=== PATIENT | male | born 1980 | race Caucasian/White ===

== ENCOUNTER 2024-07-14 05:43 | Inpatient (IN) | payer BC, SELFPAY ==
[2024-07-13 23:53] VITALS: BP 139/95
[2024-07-14] VITALS (20 sets, daily range): BP systolic 119–160; BP diastolic 65–95; BMI 22.9
[2024-07-14] MEDS: ZOFRAN 4 MG IV ×3 (00:22→10:09)
[2024-07-14] MEDS: OMNIPAQUE 50 ML PO (00:23)
[2024-07-14 00:26] LABS: Urine Albumin Negative (Neg - Trace); Urine Bilirubin Negative (Negative); Urine Character Clear (Clear); Urine Color Yellow; Urine Glucose Negative (Negative); Urine Ketone 3+ (Negative); Urine Leukocyte Negative (Negative); Urine Nitrite Negative (Negative); Urine Occult Blood 2+ (Negative); Urine Urobilinogen Negative (Neg - 1+)
[2024-07-14 00:33] LABS: % Basophils 0.4 % (0-2); % Eosinophils 0.8 % (0-6); % Immature Granulocytes 1.2 % (0-0.5); % Lymphocytes 7.7 % (20.5-51.1); % Monocytes 7.7 % (1.7-9.3); % Neutrophils 82.2 % (42.2-75.2); Absolute Eosinophils 0.1 10^3/uL (0-0.7); Absolute Immature Granulocytes 0.1 10^3/uL (0-0.05); Absolute Lymphocytes 0.8 10^3/uL (1.2-3.4); Absolute Monocytes 0.8 10^3/uL (0.1-0.6); Hematocrit 45.3 % (39.0-52.0); Hemoglobin 15.7 g/dL (13.0-18.0); Mean Corp Hgb Conc. 34.7 g/dL (33.0-37.0); Mean Corpuscular Hgb 29.5 pg (27.0-31.0); Mean Platelet Volume 9.9 fL (7.4-10.4); Nucleated Red Blood Cells % 0 % (-); Platelet Count 197 10^3/uL (130-400); Red Blood Cell Count 5.33 10^6/uL (4.70-6.10); Red Cell Dist. Width 12.7 % (11.5-14.5); White Blood Cell Count 10.9 10^3/uL (4.8-10.8)
[2024-07-14 00:41] LABS: ALT (SGPT) 21 U/L (0-50); AST (SGOT) 24 U/L (17-59); Albumin 4.3 g/dl (3.5-5.0); Alkaline Phosphatase 71 U/L (38-126); Blood Urea Nitrogen 20 mg/dl (9-20); Calcium 9.4 mg/dl (8.4-10.2); Carbon Dioxide 24 mmol/L (22-30); Chloride 107 mmol/L (98-107); Estimated Creatinine Clearance > 125 ml/min; Glucose 116 mg/dl (70-99); Potassium 4.2 mmol/L (3.5-5.1); Sodium 138 mmol/L (135-145); Total Protein 6.9 g/dl (6.3-8.2); eGFR > 60.00
[2024-07-14 00:42] LABS: Urine Bacteria Few (Negative); Urine Mucus Few; Urine White Cell 0-2 /HPF (0-5)
[2024-07-14] MEDS: NSS 1000 IV (02:28)
[2024-07-14] MEDS: DILAUDID 1 MG IV ×3 (02:40→13:11)
--- NOTE | 2024-07-14 03:12 | ED.GENMED ---
History of Present Illness
General
Chief Complaint: Abdominal Pain
Source: patient
Exam Limitations: none
Time Seen by Provider: 07/14/24 00:19
Nursing documentation reviewed up to this point in time: agreed with
History of Present Illness
History of Present Illness:
Pleasant 44-year-old male presents with right lower quadrant abdominal pain. He states around 5 PM the pain began periumbilically. He moved to his right lower quadrant. Patient states that he went to sleep and woke up at 11 PM with severe right
lower quadrant abdominal pain. He drove himself to the hospital. He states that the car ride over was very painful. He reports having anorexia having not eaten anything since 2:45 PM. He was nauseated
Phy Exam
General Physical Exam
General Presentation: mild distress (Multiple doses of pain medicine)
General age: appears stated age
General Skin: warm and dry
General Habitus: normal
General Mental: alert
General Hydration: appears well hydrated
ENT Exam
ENT Exam: EOMI, pharynx normal, neck supple and normocephalic
Eye Exam
Eye Exam: PERRL, cornea clear and conjunctiva normal
Cardiovascular Exam
Cardiovascular Exam: regular rate/rhythm, no edema, no murmur and normal peripheral pulses
Pulmonary Exam
Pulmonary Exam: lungs clear, no respiratory distress, no rales, no crackles, no rhonchi, no stridor, no wheezing and no cough
Gastrointestinal Exam
Gastrointestinal Exam: normal bowel sounds, guarding and rebound
Palpation: right lower quadrant: Severe tenderness
Neurological Exam
Neurological Exam: alert, oriented x3, no motor deficits and speech normal
Musculoskeletal Exam
Musculoskeletal Exam: full ROM and no edema
Skin Exam
Skin Exam: normal color, warm/dry, no rash and no petechia
Psychiatric Exam
Psychiatric Exam: normal mood/affect
Course
Orders/Labs/Results
Orders:
Orders
07/13/24 23:54
Complete Blood Count/With Diff Urgent
Comprehensive Metabolic Panel Urgent
Urinalysis Reflex To Culture Urgent
Date Specimen was Collected: 07/13/24
Time Specimen was Collected: 23:54
07/14/24 00:10
Urine Microscopic Reflex Cult Urgent
07/14/24 00:15
0.9% Sodium Chloride 1000 ml [Nss] 1,000 ml IV BOLUS
Iohexol [Omnipaque] See Protocol PO NOW STA
07/14/24 00:16
CT Abd/pel W Iv And Oral Contr Urgent
Comment:
Reason For Exam: RLQ abd pain
Ondansetron Injectable [Zofran] 4 mg .ROUTE .STK-MED ONE
07/14/24 00:17
Iohexol [Omnipaque] 50 ml .ROUTE .STK-MED ONE
Ondansetron Injectable [Zofran] 4 mg IV NOW STA
07/14/24 02:38
HYDROmorphone [Dilaudid] 1 mg .ROUTE .STK-MED ONE
Ondansetron Injectable [Zofran] 4 mg .ROUTE .STK-MED ONE
07/14/24 02:39
HYDROmorphone [Dilaudid] 1 mg IV NOW STA
Abnormal Lab Results
07/14/24
00:10
WBC 10.9 H 10^3/uL
(4.8-10.8)
Abs Immat Gran (auto) 0.1 H 10^3/uL
(0-0.05)
Absolute Neuts (auto) 9.0 H 10^3/uL
(1.4-6.5)
Absolute Lymphs (auto) 0.8 L 10^3/uL
(1.2-3.4)
Absolute Monos (auto) 0.8 H 10^3/uL
(0.1-0.6)
Immature Gran % 1.2 H %
(0-0.5)
Neutrophils % 82.2 H %
(42.2-75.2)
Lymphocytes % 7.7 L %
(20.5-51.1)
Glucose 116 H mg/dl
(70-99)
Urine Ketones 3+ A
(Negative)
Ur Occult Blood Reflex 2+ A
(Negative)
Urine RBC 7-10 A /HPF
(0-2)
Urine Bacteria (Reflex) Few A
(Negative)
07/14/24 00:10
07/14/24 00:10
Vital Signs
Initial and Last Documented VS:
Initial Vital Signs
Temp Pulse Resp BP Pulse Ox
98.4 F 67 14 139/95 95
07/13/24 23:53 07/13/24 23:53 07/13/24 23:53 07/13/24 23:53 07/13/24 23:53
Last Documented Vital Signs
Temp Pulse Resp BP Pulse Ox
98.4 F 57 16 145/88 99
07/13/24 23:53 07/14/24 02:32 07/14/24 02:32 07/14/24 02:32 07/14/24 02:34
*Radiology
Radiology exam reviewed: radiology read reviewed
*Pulse Oximetry
Patient hypoxic: no
Comment: Pulse ox is 99% on room air
*Critical Care Note
Total Time (30-74mins, 75-104mins- exclusive of procedures): Not Applicable
Update Note
Update Note:
Vision radiology: Acute simple appendicitis
ED Attending Note
-
Portions of this chart may have been created with voice recognition software.� Occasional wrong word or��sound alike� substitutions may have occurred due to the inherent limitations of voice recognition software.
Discharge Plan
Departure
Patient Disposition: Admit
Date of Disposition: 07/14/24
Time of Disposition: 03:17
Admit to: Med/Surg
Presentation/result/management discussed w/ accepting MD/DO: Dr. Dhaliwal
Condition: Good
Discharge Problem:
Acute appendicitis
Prescriptions:
No Action
No Current Medications
0
Referrals:
Jessi Ortega MD [Family Provider, Family Practice]
Interventions
Interventions:
*Risk Screen - Suicide Last Done: 07/13/24 23:53
*General Assessment Last Done: 07/14/24 02:32
*Neglect/Abuse Screening Last Done: 07/14/24 02:32
*ED- Fall Risk Assessment Last Done: 07/14/24 02:32
*ED COVID-19 Vaccine History Last Done: 07/14/24 02:32
ZW-Swfvkp-Qiocznpila Assessment Last Done: 07/14/24 02:34
Discharge Date and Time
Print Language: INDIAN
--- NOTE | 2024-07-14 04:24 | HPS.HSE ---
Addendum entered and electronically signed by Antonio Lincoln MD 07/14/24 16:22:
I saw and examined the patient.
The Clinical Assistant Professor's note was reviewed and I agree with the note.
Comment: 44M <24h RLQ pain and tenderness, interfering with sleep. Nausea endorsed, vomiting denied. ttp to rlq on exam. Mild luekocytosis, afebrile. CT with retrocecal appendix that appears inflamed. OCTOR for lap appy.
Original Note:
Family Physician
-
Family Physician: Jessi Ortega MD
Chief Complaint
-
'Abdomen pain'
History of Present Illness
44 y/o patient with no PMH presents to ER as he started having Right lower quadrant pain around 5 PM associated with some chills, unsure if had fever, nausea, loss of appetite, 1 loose stool, unrelieved with peptobismol. Reports dull, crampy pain
started around letty umbilical area which radiated towards right lower quadrant. Patient was trying to sleep and couldn't stay asleep due to worsening pain towards the lower abdomen and drove to Hospital which was very pain ful at that time. At
present pain and nausea is relieved with IV Dilauded and IV Zofran.
Medical History
Past Medical History
Past Medical History: Reports None
Past Surgical History: Reports Gynocological (reversed vasectomy )
Social History
Tobacco: Non-smoker
Alcohol: None
Drug: None
Personal:
Living: With Family
Family History
Family History: Not pertinent
Allergies / Home Medications
Allergies reflects when Allergies were last updated in [facility].
Home Medications with original date entered in [facility]
Allergy/Medication List:
Allergies
Allergy/AdvReac Type Severity Reaction Status Date / Time
No Known Allergies Allergy Unverified 07/13/24 23:57
Home Medications
No Meds [No Current Medications] 07/13/24
Review of Systems
-
History Source: Patient
A 12 point ROS was completed and negative except as noted: Yes
Constitutional: Reports No Symptoms
EENT: Reports No Symptoms
Respiratory: Reports No Symptoms
Cardiac: Reports No Symptoms
Abdomen/GI: Reports Abdominal Pain and Nausea
: Reports No Symptoms
Musculoskeletal: Reports No Symptoms
Skin: Reports No Symptoms
Neurological: Reports No Symptoms
Endocrine: Reports No Symptoms
Hematologic/Lymphatic: Reports No Symptoms
Psych: Reports No Symptoms
Physical Exam
Vital Signs
Vital Signs
Temp Pulse Resp BP Pulse Ox
98.4 F 57 16 145/88 99
07/13/24 23:53 07/14/24 02:32 07/14/24 02:32 07/14/24 02:32 07/14/24 02:34
Physical Exam
General: Well Developed, Well Nourished and No Apparent Distress
HEENT: NormoCephalic, Moist mucous membranes and Atraumatic
Respiratory: Clear and Non Labored Respirations
Cardiac: S1/S2 and Bradycardia (athlete, goes to gym regularly ); No Murmur or Rub
Breast: Deferred by me
GI: Soft, Non Distended, Normal Bowel Sounds, Tender (RLQ) and Organomegaly
Rectal: Deferred by Provider
Genito-urinary: No costovertebral tender
Musculoskeletal: No Clubbing, No Cyanosis and No Edema
Skin: Warm and Dry
Neuro: Awake, AO x 3 and Nonfocal/grossly intact
Hematologic/Lymphatic: No Lymphadenopathy
Psych: Calm and Intact Judgment/Insight
Laboratory Results
-
07/14/24 00:10
07/14/24 00:10
Laboratory Results
Total Bilirubin 1.0 mg/dl (0.2-1.3) 07/14/24 00:10
AST 24 U/L (17-59) 07/14/24 00:10
ALT 21 U/L (0-50) 07/14/24 00:10
Alkaline Phosphatase 71 U/L (38-126) 07/14/24 00:10
Data Reviewed
-
CT Scan: Report Reviewed by me
Lab Data: Labs Reviewed by me
Impression/Plan
-
44 y/o patient with abdomen pain
# Abdomen pain likely due to Acute Appendicitis
-WBC 10.7
-CT abd/pelvis Acute appendicitis without perforation
-Continue IVF
-continue Zosyn
-Dilaudid prn
-IV Zofran prn
-NPO
-Admit to Dr. Dhaliwal. [facility] floor
SCD's
Full Code
[2024-07-14] MEDS: ZOSYN 100 IV (04:43)
[2024-07-14 06:16] LABS: Hematocrit 42.4 % (39.0-52.0); Hemoglobin 14.6 g/dL (13.0-18.0); Mean Corp Hgb Conc. 34.4 g/dL (33.0-37.0); Mean Corpuscular Hgb 29.3 pg (27.0-31.0); Mean Corpuscular Volume 85.1 fL (80.0-94.0); Mean Platelet Volume 9.4 fL (7.4-10.4); Platelet Count 168 10^3/uL (130-400); Red Blood Cell Count 4.98 10^6/uL (4.70-6.10); Red Cell Dist. Width 12.7 % (11.5-14.5); White Blood Cell Count 9.3 10^3/uL (4.8-10.8)
[2024-07-14] MEDS: DILAUDID 0.5 MG IV (08:57)
--- NOTE | 2024-07-14 09:34 | CM ---
Initial assessment completed at bedside in the ED
Pharmacy verified: [facility] @ [id number]
Patient lives w/ and 2 children ages 9 & 3; [place]; 2 steps to enter, 17 steps between floors; railings on stairs; powder room main floor; 2nd floor bath has stall shower w/ seat
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
NO SNF or Home Health utilization history
will transport home
Plan: Discharge to home when medically stable; do not anticipate any DC needs/services
[2024-07-14] MEDS: ZOSYN 50 IV (10:09)
--- NOTE | 2024-07-14 16:23 | OR.RPT ---
Addendum entered and electronically signed by Antonio Lincoln MD 07/14/24 16:36:
The assistance of Gregoria LAGUERRE was required due to the complexity of the procedure. During the procedure she assisted with retraction, visualization, and closure of the wound.
Original Note:
Operative Report
Operative Report
Primary Surgeon: Latonia
Assisting: Gregoria LAGUERRE
Pre-op Diagnosis: Acute appendicitis
Post-op Diagnosis: Same
Procedure Performed: Laparoscopic appendectomy
Anesthesia Type: GETA
Specimen / Cultures: Appendix
Estimated Blood Loss:2cc
Complications: None immediate
Operative Findings: Inflamed appendix with dilated base, mild inflammation, no purulence, no perforation, turbid fluid suctioned from pelvis
Date of Surgery: 07/14/24
Indications: This 44M developed right lower quadrant abdominal pain and on workup was found to have acute appendicitis. Laparoscopic appendectomy was elected.
Description of procedure: The patient was placed on the operating table in the supine position. General anesthesia was induced. A time-out was completed verifying correct patient, procedure, site, positioning, and special equipment prior to
beginning this procedure. An orogastric tube was placed. The abdomen was prepped and draped in the usual sterile fashion. A stab incision was made in left upper quadrant and the Veress needle was inserted. Proper position was confirmed by aspiration
and saline meniscus test. The abdomen was insufflated with carbon dioxide to a pressure of 12 mmHg. The patient tolerated insufflation well.
A 5mm optical trocar was then inserted at the left lower quadrant. The laparoscope was inserted and the abdomen inspected. A minor very superficial laceration from the veress was noted on the left lobe of the liver, it was hemostatic. No other
injuries from initial trocar placement or Veress needle insertion were noted. Additional trocars were then inserted in the following locations: a 12-mm trocar at the umbilicus and a 5-mm trocar midline in the suprapubic space. The abdomen was
inspected and no abnormalities were found. The table was placed in the Trendelenburg position with the right side up. The tip of the appendix was swept inferior from its retrocecal position. It was gently grasped with an atraumatic grasper and
retracted toward the patient�s feet and abdominal wall. This maneuver exposed the appendiceal blood supply which was controlled with the Ligasure device. Following this, a laparoscopic linear cutting stapler with a 45mm merritt load was deployed and
used to transect the appendix at its base. The base was mildly dilated. The appendix was placed in an endoscopic retrieval bag, removed through the umbilical port, and passed off the table as a specimen.
We then turned our attention to the staple line, which was noted to be hemostatic. Scant turbid free fluid was suctioned from the pelvis. The umbilical trocar site was closed at the fascial level laparoscopically with 2-0 PDS under direct vision.
Secondary trocars were removed under direct vision and noted to be hemostatic. The laparoscope was withdrawn and the abdomen was allowed to collapse. The skin was closed with subcuticular sutures of 4-0 monocryl and topical skin adhesive. The
orogastric tube was removed.
The patient tolerated the procedure well and was taken to the postanesthesia care unit in stable condition.
--- NOTE | 2024-07-14 16:51 | W.DS.TRANS ---
DC Summary - Regional Controller
-
Discharge Instructions:
Discharge Diagnosis/Procedures Acute appendicitis status post appendectomy
Diet Regular,As tolerated
Activity No strenuous activity
Additional Activity Do not lift over 15lbs for the next 2-3 weeks
Driving Restrictions No driving for 24 hours
Bathing Restrictions OK to Shower
Wound Care Allow the glue to flake off your incisions over
the next 2 weeks, avoid scrubbing or picking it
off. Do not submerge in tubs or pools.
Instructions: Appendectomy - Discharge instructions
Stand-Alone Forms:
Changes to Home Medications: No
Discharge Medications:
DC Medications w/original date entered in [employer]
tramadol 50 mg tablet 50 - 100 mg (1 - 2 x 50 mg) PO Q6H PRN Pain #14 tabs 07/14/24
Home Medication Changes
Pending Results: No
[2024-07-14] MEDS: ROXICODONE 5 MG PO (18:32)
--- NOTE | 2024-07-17 11:29 | CM ---
discharge dispo entered
== END 2024-07-14 18:43 | disposition home or self-care (01) | DRG 399 ==
LOC: PACUI 05:43
PROVIDERS: Nurse Practitioner Gerontology; Surgery; ADMITTING PHYSICIAN Surgery; EMERGENCY PHYSICIAN Student in an Organized Health Care Education/Training Program; FAMILY PHYSICIAN Family Medicine
PROC: 0DTJ4ZZ Resection of Appendix, Percutaneous Endoscopic Approach (ICD-10-PCS; 2024-07-14)
DX: K35.80 Unspecified acute appendicitis (principal)
CPT/HCPCS: 88304; 74177; 80053; 81003; 81015; 85025; 85027; 96361; 96365; 96375; 96376; 99291; C1776; Q9967